=== PATIENT | female | born 1995 | race Hispanic/Latino ===

== ENCOUNTER 2017-05-03 09:33 | Outpatient (CLI) | payer BC | END 2017-05-03 09:34 | disposition home or self-care (01) | LOC: BICULT 09:33 | PROVIDERS: ATTEND Family Medicine | DX: Z34.92 Encounter for supervision of normal pregnancy, unspecified, second trimester (principal); Z3A.18 18 weeks gestation of pregnancy | CPT/HCPCS: 76805 ==

== ENCOUNTER 2017-09-19 09:54 | Inpatient (IN) | payer BC ==
[2017-09-19] MEDS ORDERED: Methylergonovine 0.2 MG/ML VIAL IM PRN (21:33)
[2017-09-19] MEDS ORDERED: Misoprostol 200 MCG TAB PR PRN (21:33)
[2017-09-19] MEDS ORDERED: Acetaminophen 500 MG TAB PO PRN (21:33)
[2017-09-19] MEDS ORDERED: Zolpidem Tartrate 5 MG TAB PO PRN (21:33)
[2017-09-19] MEDS ORDERED: HYDROcodone/Acetaminophen 5/325 mg Tablet PO PRN (21:33)
[2017-09-19] MEDS ORDERED: Ondansetron HCl/PF 4 MG/2 ML Vial IVP PRN (21:33)
[2017-09-19] MEDS ORDERED: Promethazine HCl 25 MG/ML VIAL IM PRN (21:33)
[2017-09-19] MEDS ORDERED: Lidocaine 1% (PF) 30 ML VIAL SC PRN (21:33)
[2017-09-19] MEDS ORDERED: NS w/ Oxytocin 10 units 500 ML IV SCH (21:33)
[2017-09-19] MEDS ORDERED: Butorphanol Tartrate 1 MG/ML VIAL SLOW IVP PRN (21:33)
[2017-09-19] MEDS ORDERED: NS / Oxytocin 40 units/1000ml 1,000 ML IV PRN (21:33)
[2017-09-19] MEDS ORDERED: Ibuprofen 800 MG TAB PO PRN (21:33)
[2017-09-19] MEDS ORDERED: Acetaminophen/Codeine 30-300mg Tablet PO PRN (21:33)
[2017-09-19] MEDS: Lactated Ringer's 1,000 ML IV SCH (21:45)
[2017-09-19 22:07] LABS: Hemoglobin 9.7 g/dL (12.0-16.0); Mean Corpuscular HGB CONC 33.6 g/dL (32.0-36.0); Mean Corpuscular Volume 80.3 fL (78.0-98.0); Mean Platelet Volume 9.1 fL (7.4-10.4); Platelet Count 254 thou/uL (130-400); RBC Distribution Width 13.6 % (11.5-14.5); Red Blood Cell (RBC) Count 3.58 mill/uL (4.20-5.40)
[2017-09-19] MEDS: Misoprostol 100 MCG TAB VAG SCH (22:08)
[2017-09-19] MEDS ORDERED: diphenhydrAMINE 25 MG CAP PO SCH (22:45)
[2017-09-19 22:46] LABS: Syphilis Antibody Nonreactive (Nonreactive); Syphilis Antibody Index 0.04 S/CO (<1.00 Non-Reactive)
[2017-09-19 23:24] LABS: HBSAg Index 0.17 S/CO (0-0.99); Hep B Surf Ag Non-Reactive S/CO (NonReactive)
[2017-09-19 23:28] VITALS: BMI 28.2
[2017-09-20] MEDS: Lactated Ringer's 1,000 ML IV SCH ×4 (00:19→18:12)
[2017-09-20] MEDS: Misoprostol 100 MCG TAB VAG SCH ×3 (01:02→10:52)
[2017-09-20] MEDS ORDERED: DISCONTINUE ALL PREVIOUS NARCOTICS FS SCH (09:00)
[2017-09-20] MEDS: Bupivacaine 0.75% 13.4 ML, fentaNYL Citrate/PF 400 MCG in Sodium Chloride 0.9% 78.6 ML EPIDURAL SCH ×2 (09:40→19:10)
[2017-09-20] MEDS ORDERED: diphenhydrAMINE 50 MG/ML VIAL IVP PRN ×4 (10:25→21:56)
[2017-09-20] MEDS ORDERED: diphenhydrAMINE 25 MG CAP PO PRN (10:25)
[2017-09-20] MEDS ORDERED: Promethazine HCl 25 MG/ML VIAL IM PRN ×4 (10:25→21:56)
[2017-09-20] MEDS ORDERED: Bupivacaine 0.25% 10 ML VIAL EPIDURAL PRN (10:25)
[2017-09-20] MEDS ORDERED: Promethazine HCl 25 MG SUPP PR PRN ×2 (10:25→20:36)
[2017-09-20] MEDS ORDERED: Ondansetron HCl/PF 4 MG/2 ML Vial IVP PRN ×5 (10:25→21:56)
[2017-09-20] MEDS ORDERED: Zolpidem Tartrate 5 MG TAB PO PRN ×2 (10:25→21:56)
[2017-09-20] MEDS ORDERED: diphenhydrAMINE 50 MG/ML VIAL IM PRN ×2 (10:25→21:56)
[2017-09-20] MEDS ORDERED: Naloxone HCl 0.4 mg/ml Vial IVP PRN ×6 (10:25→20:36)
[2017-09-20] MEDS ORDERED: Eucerin (Mineral Oil/Petrolatum,White) 30 gm Jar TOP PRN ×3 (10:25→20:36)
[2017-09-20] MEDS ORDERED: Lactated Ringer's 500 ML IV PRN (10:29)
[2017-09-20] MEDS ORDERED: Acetaminophen 325 MG TAB PO PRN (10:29)
[2017-09-20] MEDS ORDERED: ePHEDrine/0.9% NaCl/PF SYRINGE 50 mg/10 ml SLOW IVP PRN (10:29)
[2017-09-20] MEDS ORDERED: fentaNYL Citrate/PF 1,250 MCG, Bupivacaine 25 ML in Sodium Chloride 0.9% 250 ML 200 ML EPIDURAL SCH (10:30)
[2017-09-20] MEDS ORDERED: Communication Order-Pharmacy FS SCH ×5 (10:30→22:00)
[2017-09-20] MEDS ORDERED: fentaNYL Citrate/PF 400 MCG, Bupivacaine 0.5% 20 ML in Sodium Chloride 0.9% 72 ML EPIDURAL SCH (10:30)
[2017-09-20] MEDS: NS w/ Oxytocin 10 units 500 ML IV SCH (10:52)
[2017-09-20] MEDS ORDERED: Bupivacaine 0.25% HCL 30 ML VIAL ONE (11:00)
[2017-09-20] MEDS ORDERED: Lidocaine 2% MPF 10 ML AMP (For Epidural Use) ONE (11:00)
[2017-09-20] MEDS ORDERED: Succinylcholine Chloride 20 MG/ML 10 ml SYRINGE FS ONE ×2 (14:54→20:50)
[2017-09-20] MEDS ORDERED: Ondansetron HCl/PF 4 MG/2 ML Vial ONE ×2 (14:54→21:07)
[2017-09-20] MEDS ORDERED: PROPOFOL 200 MG/20 ML VIAL ONE (14:54)
[2017-09-20] MEDS ORDERED: Dexamethasone 20 MG/5 ML VIAL ONE (14:54)
[2017-09-20] MEDS ORDERED: Bicitra 30 ML UDCUP ONE (19:54)
[2017-09-20] MEDS ORDERED: CEFAZOLIN/Water 2 GM/20 ML SYRINGE SLOW IVP SCH (20:00)
[2017-09-20] MEDS ORDERED: Morphine PF 1 MG/ML SYR ONE (20:25)
[2017-09-20] MEDS ORDERED: Oxytocin 10 UNITS/ML VIAL ONE (20:26)
[2017-09-20] MEDS ORDERED: Ketorolac Tromethamine 30 MG/ML VIAL IVP PRN (20:36)
[2017-09-20] MEDS ORDERED: Naloxone HCl 0.4 mg/ml Vial IV PRN ×2 (20:36→21:56)
[2017-09-20] MEDS ORDERED: Meperidine HCl/PF 25 MG/ML VIAL SLOW IVP PRN (20:36)
[2017-09-20] MEDS ORDERED: HYDROmorphone 2 MG/ML VIAL SLOW IVP PRN (20:36)
[2017-09-20] MEDS ORDERED: Ketorolac Tromethamine 30 MG/ML VIAL IVP SCH (20:45)
[2017-09-20] MEDS ORDERED: PROPOFOL 20 ML ONE (20:50)
[2017-09-20] MEDS ORDERED: Fentanyl 250 MCG/5 ML VIAL ONE (20:51)
[2017-09-20] MEDS ORDERED: Methylergonovine 0.2 MG/ML VIAL ONE (20:59)
[2017-09-20] MEDS ORDERED: Dexamethasone 4 mg/ml Vial ONE (21:07)
[2017-09-20] MEDS ORDERED: fentaNYL Citrate/PF 2,000 MCG in Sodium Chloride 0.9% 60 ML IV PRN (21:56)
[2017-09-20] MEDS ORDERED: Ketorolac Tromethamine 30 MG/ML VIAL ONE (23:17)
[2017-09-21] MEDS ORDERED: Lanolin Ointment 7 GM TUBE TOP PRN (00:30)
[2017-09-21] MEDS ORDERED: diphenhydrAMINE 25 MG CAP PO PRN (00:30)
[2017-09-21] MEDS ORDERED: Simethicone Chewable 80 MG TAB PO PRN (00:30)
[2017-09-21] MEDS ORDERED: Bisacodyl 10 MG SUPP PR PRN (00:30)
[2017-09-21] MEDS ORDERED: Lactated Ringer's 1,000 ML IV SCH (00:30)
[2017-09-21] MEDS ORDERED: Ondansetron HCl/PF 4 MG/2 ML Vial IVP PRN (00:30)
[2017-09-21] MEDS ORDERED: Acetaminophen/Codeine 30-300mg Tablet PO PRN (00:30)
[2017-09-21] MEDS ORDERED: Acetaminophen 325 MG TAB PO PRN (00:30)
--- NOTE | 2017-09-21 00:32 | OP ---
DATE OF SURGERY: 09/20/2017 PREOPERATIVE DIAGNOSIS: Term intrauterine with failure to progress in labor. POSTOPERATIVE DIAGNOSES: Term intrauterine with failure to progress in labor, status post delivery. PROCEDURE: Primary low-transverse section. SURGEON: Ariadne Mccurdy M.D. STAMP MACHINE SERVICER: Bruno Mccurdy M.D. ANESTHESIA: Epidural anesthetic. COMPLICATIONS: None. PROCEDURE IN DETAIL: The patient had progressed in labor to 5 cm. IUPC had been placed. Noted that she had no further cervical dilatation. In fact, she had cervical edema with no further descent and decision made for section secondary to failure to progress. Risks, benefits, and alternati ves were explained to the patient. She was taken to the operating room. Epidural had been dosed. S he was prepped and draped in the usual sterile technique. On testing, patient complained of discomfo rt, and subsequently, underwent general endotracheal anesthetic without complications. A Pfannenstie l incision was made in the inferior aspect of the abdomen. Subcutaneous tissue opened with sharp dis section, fascia opened with sharp dissection, peritoneum opened with sharp and blunt dissection. Not ed the abdomen was filled with a gravid uterus. A bladder blade was placed and a low-transverse inci iam was made on the uterus. A viable female infant was delivered from vertex presentation without d ifficulty. breathed and cried spontaneously. Cord was clamped and cut and the was saez ded to care of the Neonatology team. Cord blood was obtained and the placenta was delivered manually , appeared intact. Hysterotomy edges were grasped with ring forceps and the uterus was taken externa l to the abdominal cavity. A wet lap was used to wipe clean the uterus for any membrane fragments an d the hysterotomy was then closed in continuous fashion using #1 Monocryl. A second layer was placed in the left lateral edge for hemostasis. The uterus was replaced into the abdominal cavity. Gutter s were checked. There was no further bleeding, no clots, and the peritoneum was then closed in ag nuous fashion using 0 chromic. The fascia was then closed in continuous fashion using 0 Vicryl. Spo nge and instrument counts were correct. A running layer was placed with 3-0 chromic for subcutaneous tissue and taurus were used to approximate the skin. The patient tolerated the procedure well to g o to recovery room in good condition. Noted, the baby is a viable female , weight 6 pounds 12 ounces, Apgars 7 at 1 minute, 9 at 5 minutes with no further complications. Estimated blood loss 800 mL.
[2017-09-21] MEDS ORDERED: Ferrous Sulfate 325 MG TAB PO SCH (01:00)
[2017-09-21] MEDS ORDERED: Docusate Calcium (SURFAK) 240 MG CAP PO SCH (01:00)
[2017-09-21 05:23] LABS: Hemoglobin 8.9 g/dL (12.0-16.0); Mean Corpuscular HGB CONC 31.7 g/dL (32.0-36.0); Mean Corpuscular Hemoglobin 25.4 pg (27.0-31.0); Mean Corpuscular Volume 80.2 fL (78.0-98.0); Mean Platelet Volume 8.7 fL (7.4-10.4); Platelet Count 220 thou/uL (130-400); RBC Distribution Width 13.5 % (11.5-14.5); Red Blood Cell (RBC) Count 3.51 mill/uL (4.20-5.40); White Blood Cell (WBC) Count 23.3 thou/uL (4.8-10.8)
[2017-09-21] MEDS ORDERED: ALPRAZolam 0.25 MG TAB PO PRN (07:38)
[2017-09-21] MEDS: Docusate Calcium (SURFAK) 240 MG CAP PO SCH ×2 (09:31→21:37)
[2017-09-21] MEDS: Prenatal Vitamin 1 TAB PO SCH (09:31)
[2017-09-21] MEDS: Ferrous Sulfate 325 MG TAB PO SCH ×2 (09:31→16:27)
[2017-09-21] MEDS: Misoprostol 100 MCG TAB VAG SCH ×2 (09:34→09:35)
[2017-09-21] MEDS: NS w/ Oxytocin 10 units 500 ML IV SCH (09:35)
[2017-09-21] MEDS: Acetaminophen/Codeine 30-300mg Tablet PO PRN ×2 (10:54→16:58)
[2017-09-21] MEDS: diphenhydrAMINE 25 MG CAP PO PRN (21:37)
[2017-09-21] MEDS: Ibuprofen 800 MG TAB PO SCH (21:37)
[2017-09-22] MEDS: Acetaminophen/Codeine 30-300mg Tablet PO PRN ×3 (05:03→19:59)
[2017-09-22] MEDS: Ibuprofen 800 MG TAB PO SCH ×3 (05:03→21:56)
[2017-09-22] MEDS ORDERED: Ibuprofen 800 MG TAB PO SCH (06:00)
[2017-09-22] MEDS: Prenatal Vitamin 1 TAB PO SCH (08:47)
[2017-09-22] MEDS: Docusate Calcium (SURFAK) 240 MG CAP PO SCH ×2 (08:47→19:59)
[2017-09-22] MEDS: Ferrous Sulfate 325 MG TAB PO SCH ×2 (08:47→17:24)
[2017-09-22] MEDS: diphenhydrAMINE 25 MG CAP PO PRN (20:06)
[2017-09-23] MEDS: diphenhydrAMINE 25 MG CAP PO PRN ×2 (00:55→04:50)
[2017-09-23] MEDS: HYDROcodone/Acetaminophen 5/325 mg Tablet PO PRN ×2 (00:55→08:58)
[2017-09-23] MEDS: Ibuprofen 800 MG TAB PO SCH (05:28)
[2017-09-23 07:42] VITALS: BP 110/57; TEMP 98.8
[2017-09-23] MEDS: Docusate Calcium (SURFAK) 240 MG CAP PO SCH (08:58)
[2017-09-23] MEDS: Prenatal Vitamin 1 TAB PO SCH (08:58)
[2017-09-23] MEDS: Ferrous Sulfate 325 MG TAB PO SCH (08:58)
== END 2017-09-23 10:40 | disposition home or self-care (01) | DRG 766 ==
LOC: L&D 21:03 → 3SW 09-21 00:26
PROVIDERS: ADMIT Family Medicine; ATTEND Family Medicine
PROC: 0U7C7ZZ Dilation of Cervix, Via Natural or Artificial Opening (ICD-10-PCS; principal; 2017-09-19)
PROC: 10D00Z1 Extraction of Products of Conception, Low, Open Approach (ICD-10-PCS; 2017-09-20)
DX: O36.63X0 Maternal care for excessive fetal growth, third trimester, not applicable or unspecified (principal); O62.0 Primary inadequate contractions; Z3A.39 39 weeks gestation of pregnancy; Z37.0 Single live birth
CPT/HCPCS: 36415; 51702; 85027; 86780; 86850; 86900; 86901; 87340; C1726; J1100; J1200; J1885; J2001; J2210; J2274; J2405; J2590; J2704; J3010; J7050; S0020

== ENCOUNTER 2020-10-25 13:29 | Outpatient (CLI) | payer BC | END 2020-10-25 13:30 | disposition home or self-care (01) | LOC: BICRAD 13:29 | PROVIDERS: ATTEND Physician Assistant | DX: M54.5 Low back pain (principal); M43.8X6 Other specified deforming dorsopathies, lumbar region | CPT/HCPCS: 72100 ==